=== PATIENT | male | born 1955 | race Caucasian/White ===

== ENCOUNTER → 2021-06-29 | Outpatient (CLI) | payer BC, MEDICARE ==
[2021-06-29 13:17] LABS: BASOPHILS % (AUTO) 1 % (0-10); EOSINOPHILS # (AUTO) 0.1 10^3/uL (0.0-0.3); EOSINOPHILS % (AUTO) 1 % (0-10); HEMATOCRIT 35 % (40-54); HEMOGLOBIN 12.2 g/dL (13.3-17.7); LYMPHOCYTES # (AUTO) 1.3 10^3/uL (1.0-4.0); LYMPHOCYTES % (AUTO) 26 % (12-44); MEAN CORPUSCULAR HEMOGLOBIN 32 pg (25-34); MEAN CORPUSCULAR HGB CONC 35 g/dL (32-36); MEAN CORPUSCULAR VOLUME 90 fL (80-99); MEAN PLATELET VOLUME 8.7 fL (9.0-12.2); MONOCYTES # (AUTO) 0.5 10^3/uL (0.0-1.0); MONOCYTES % (AUTO) 11 % (0-12); NEUTROPHILS # (AUTO) 2.9 10^3/uL (1.8-7.8); NEUTROPHILS % (AUTO) 60 % (42-75); PLATELET COUNT 185 10^3/uL (130-400); WHITE BLOOD COUNT 4.8 10^3/uL (4.3-11.0)
[2021-06-29 13:32] LABS: CREATINE KINASE 152 U/L (30-200)
[2021-06-29 13:38] LABS: CREATINE KINASE MB 2.3 NG/ML (<6.6)
[2021-06-29 14:01] LABS: ERYTHROCYTE SEDIMENTATION RATE 40 MM/HR (0-30)
== END ==
LOC: CARD 12:44
PROVIDERS: ATTEND Family Medicine
DX: R07.9 Chest pain, unspecified (principal); R41.0 Disorientation, unspecified; R79.82 Elevated C-reactive protein (CRP)
CPT/HCPCS: 36415; 82550; 82553; 84153; 84484; 85025; 85652; 86141; 93005

== ENCOUNTER → 2021-07-14 | Outpatient (CLI) | payer MEDICARE ==
--- NOTE | 2021-07-14 14:57 | Diagnostic Imaging Report ---
CT Lung Screening INDICATION: History of smoking, pack year data not provided. Patient presents for low-dose baseline CT screening. TECHNIQUE: Noncontrast, low-dose CT imaging performed according to the lung cancer screening protocol. Auto Exposure Controls were utilize during the CT exam to meet ALARA standards for radiation dose reduction. COMPARISON: Baseline. FINDINGS: No suspicious lung mass. No dominant pulmonary nodule. No findings of lung cancer. Within the right upper lobe and to a lesser extent the superior segment of the right lower lobe are some mild scattered tree-in-bud nodular infiltrates which may reflect nonspecific bronchiolitis. Patient has slight thickening of the central airways consistent with a component of underlying bronchitis. No endobronchial filling defect. There is no thoracic lymphadenopathy. There is no pleural or pericardial effusion. The aorta is nonaneurysmal. There are coronary artery atherosclerotic vascular calcification, severely involving the left main and substantially found in the LAD. Upper abdomen is nonacute. IMPRESSION: No findings of lung cancer. LUNG-RADS CATEGORY: 1 MODIFIER: None. OTHER SIGNIFICANT FINDINGS: 1. Faint tree-in-bud nodular infiltrates in the right upper and superior segment of the right lower lobes with mild bronchiectasis and bronchial wall thickening suggest nonspecific mild bronchiolitis and bronchitis. 2. Coronary artery atherosclerosis. Dictated by: Dictated on workstation # [id number]
== END ==
LOC: RAD 13:15
PROVIDERS: ATTEND Nurse Practitioner Family
DX: Z12.2 Encounter for screening for malignant neoplasm of respiratory organs (principal); Z87.891 Personal history of nicotine dependence
CPT/HCPCS: 71271

== ENCOUNTER → 2021-07-21 | Outpatient (CLI) | payer MEDICARE ==
--- NOTE | 2021-07-21 12:05 | Diagnostic Imaging Report ---
PROCEDURE: CT abdomen and pelvis without contrast. TECHNIQUE: Multiple contiguous axial images were obtained through the abdomen and pelvis without the use of intravenous contrast. Auto Exposure Controls were utilized during the CT exam to meet ALARA standards for radiation dose reduction. INDICATION: Microhematuria. FINDINGS: The lung bases are clear. The liver and gallbladder are unremarkable. Pancreas and spleen are unremarkable. No adrenal mass is detected. Kidneys are without calculi or hydronephrosis. Ureters are nondilated. No ureteral or bladder calculi are seen. Aorta is nonaneurysmal. No central retroperitoneal or mesenteric lymphadenopathy is seen. Bowel loops appear to be nonobstructed. There is moderate stool in the colon. No free fluid or fluid collection is seen. No pelvic lymphadenopathy is identified. Bony structures are nonacute. IMPRESSION: Unremarkable noncontrast CT of the abdomen and pelvis. No definite urinary tract calculi, mass or obstruction is detected. Dictated by: Dictated on workstation # [id number]
== END ==
LOC: RAD 11:15
PROVIDERS: ATTEND Urology
DX: N40.0 Benign prostatic hyperplasia without lower urinary tract symptoms (principal); R31.29 Other microscopic hematuria
CPT/HCPCS: 74176

== ENCOUNTER → 2021-08-03 | Outpatient (CLI) | payer MEDICARE | LOC: CARD 12:00 | PROVIDERS: ATTEND Internal Medicine Cardiovascular Disease | DX: R00.2 Palpitations (principal); R06.09 Other forms of dyspnea | CPT/HCPCS: 93225; 93226; 93306 ==

== ENCOUNTER → 2021-08-05 | Outpatient (CLI) | payer MEDICARE ==
[~2021-08-05] MED LIST: CATHETER FLUSH 10 ML SYR IVP PRN; REGADENOSON 0.4 MG/5 ML SYR (LEXISCAN) IV ONE
[2021-08-05 08:56] VITALS: BP 116/76
--- NOTE | 2021-08-09 21:36 | STRESS TEST ---
DATE OF SERVICE: 08/05/2021 RESTING AND POST REGADENOSON TECHNETIUM-99M TETROFOSMIN SPECT CT IMAGING ORDERING PHYSICIAN: Dr. Stewart. PRIMARY PHYSICIAN: Dr. Luong. CLINICAL DIAGNOSIS: Shortness of breath. Baseline images were carried out after injection of 10.13 mCi of technetium-99m Tetrofosmin. This was followed by 0.4 mg regadenoson and 31.4 mCi of technetium-99m Tetrofosmin for stress imaging. The electrocardiogram showed sinus rhythm at baseline. It did not change significantly with regadenoson infusion. The patient noted a feeling of indigestion and upset stomach following regadenoson infusion, which resolved in a few minutes. Review of images at rest and following stress indicates a moderate basal inferior perfusion defect, which appears transient. Gated images show normal global left ventricular systolic function with normal regional wall motion. Left ventricular ejection fraction is calculated to be 74%. CONCLUSIONS: 1. This study is indicative of a moderate amount of basal inferior ischemia. 2. Normal regional wall motion. 3. Normal global left ventricular systolic function with a calculated ejection fraction of 74%. Job ID: [id number] DocumentID: [id number] Dictated Date: 08/09/2021 18:02:48 Human Services Professional Date: 08/09/2021 21:35:45 Dictated By: BRETT STEWART MD, MA, FACP, FACC,
== END ==
LOC: CARD 07:45
PROVIDERS: ATTEND Internal Medicine Cardiovascular Disease
DX: R06.09 Other forms of dyspnea (principal)
CPT/HCPCS: 78452; 93017; A9502

== ENCOUNTER 2021-08-30 09:00 | Day surgery (SDC) | payer MEDICARE ==
[~2021-08-30] VITALS: Ht 167.6 cm; Wt 87.3 kg
[2021-08-30] VITALS (15 sets, daily range): BP systolic 106–160; BP diastolic 67–93
[2021-08-30] MEDS: NS IV 1000 ML 1,000 ML IV SCH ×3 (07:26→11:29)
[2021-08-30 07:36] LABS: HEMATOCRIT 41 % (40-54); HEMOGLOBIN 13.7 g/dL (13.3-17.7); MEAN CORPUSCULAR HEMOGLOBIN 31 pg (25-34); MEAN CORPUSCULAR HGB CONC 34 g/dL (32-36); MEAN CORPUSCULAR VOLUME 93 fL (80-99); MEAN PLATELET VOLUME 9.2 fL (9.0-12.2); PLATELET COUNT 140 10^3/uL (130-400); WHITE BLOOD COUNT 4.2 10^3/uL (4.3-11.0)
[2021-08-30 07:48] LABS: ALBUMIN 4.5 GM/DL (3.2-4.5); POTASSIUM 4.2 MMOL/L (3.6-5.0)
[2021-08-30 07:49] LABS: CALCIUM 9.6 MG/DL (8.5-10.1)
[2021-08-30 07:50] LABS: PROTHROMBIN TIME PATIENT 13.5 SEC (12.2-14.7)
[2021-08-30 07:51] LABS: TOTAL PROTEIN 7.4 GM/DL (6.4-8.2)
[2021-08-30 07:52] LABS: BILIRUBIN,TOTAL 0.7 MG/DL (0.1-1.0)
[2021-08-30 07:54] LABS: CREATININE SERUM 1.11 MG/DL (0.60-1.30)
[~2021-08-30 09:00] MED LIST changes: +ASPI-1238 PO; -CATHETER FLUSH 10 ML SYR IVP PRN; +DIAZ10TA3 PO; +FLUO40CA PO; +FURO20TA4 PO; +GABA300C PO; +HEParin (CATH LAB) 2,000 ML IV ONE; +LEVO50CA4 PO; +LIDOCAINE 1% INJ 20 ML VIAL ONE; +LOSA100T57 PO; +MIDAZOLAM 5 MG/5 ML (VERSED) VIAL ONE; +NS IV 1000 ML 1,000 ML IV SCH; +NS IV 1000 ML 1,000 ML ONE; +OMEP20CA18 PO; +POTA-51 PO; -REGADENOSON 0.4 MG/5 ML SYR (LEXISCAN) IV ONE; +ROPI2TAB6 PO; +SIMV20TA26 PO; +diphenhydrAMINE 50 MG/ML INJ (BENADRYL) ONE; +fentaNYL INJ 100 MCG/2 ML AMP ONE
[2021-08-30] MEDS ORDERED: ADENOSINE 90 MG/30 ML (ADENOSCAN) VIAL IV ONE ×2 (09:05→09:10)
[2021-08-30] MEDS ORDERED: HEParin 1000 UNIT/ML (10ML VIAL) FOR BOLUS ONE (09:05)
[2021-08-30] MEDS ORDERED: NITRO DRIP 25000 MCG/D5W 0 ML IV ONE (09:16)
[2021-08-30] MEDS ORDERED: EPTIFIBATIDE BOLUS 20 ML IV ONE (09:20)
[2021-08-30] MEDS ORDERED: ASPIRIN 81 MG CHEW (CHILDREN'S ASA) ONE (09:48)
[2021-08-30] MEDS ORDERED: CLOPIDOGREL 300 MG (PLAVIX) TABLET PO ONE (09:48)
--- NOTE | 2021-08-30 10:41 | CARDIAC CATHETERIZATION ---
DATE OF SERVICE: 08/30/2021 CARDIAC CATHETERIZATION AND CORONARY INTERVENTION REPORT The patient is a 66-year-old gentleman who has multiple coronary artery disease risk factors and who has been experiencing chest discomfort. Myocardial perfusion imaging was indicative of a considerable ischemia. Cardiac catheterization was carried out. Informed consent was obtained for cardiac catheterization, possible ad hoc coronary intervention. PROCEDURE IN DETAIL: He was brought to the cardiac catheterization laboratory in a fasting state. Right groin was prepared and draped in the usual sterile fashion. Lidocaine 1% was used for local anesthesia. Modified Seldinger technique was used to advance a 5-Romanian sheath into the right femoral artery, 5-Romanian JL4 catheter was used for left coronary angiography and 5-Romanian JR4 catheter used for right coronary angiography and for left heart catheterization and left ventricular angiography. Subsequently, fractional flow reserve measurement was carried out in the ostial and proximal left anterior descending and this was followed by percutaneous intervention and these are described below. FRACTIONAL FLOW RESERVE MEASUREMENT IN THE LEFT ANTERIOR DESCENDING: The ostial and proximal left anterior descending appeared to have considerable stenosis, but the severity was difficult to mink rancher. There also appeared to be considerable calcification in this area. We carried out fractional flow reserve measurement. We exchanged the sheath over a wire for a 6-Romanian sheath. We gave 5000 units of intravenous heparin. We used 6-Romanian JL4 guide catheter. We advanced a pressure wire across the lesion and fractional flow reserve measurement was carried out, which indicated that the fractional flow reserve was 0.75. Thus, this was a hemodynamically significant lesion and we proceeded with percutaneous intervention. PERCUTANEOUS INTERVENTION TO THE LEFT ANTERIOR DESCENDING: We gave a double bolus of Integrilin during the interventional procedure. We used the pressure wire to advance 2.5 x 15 mm balloon to the lesion in the ostial and proximal left anterior descending and balloon was inflated to 18 atmospheres. Subsequent angiography revealed approximately 50 to 60% stenosis at the previous site of nearly 90% stenosis. We then removed the balloon and tried to advance a Skypoint 2.75 x 12 mm stent, but we were not able to advance it across the lesion. We then removed the pressure wire and replaced it with a ChoICE extra support wire, and we were then able to advance the stent with moderate difficulty. We were able to get it through the lesion and then pulled back to carefully position it to cover the entire lesion and the stent balloon was inflated to 16 atmospheres. Full stent expansion was achieved. We then collapsed the balloon and pulled it back slightly proximally to cover the proximal two thirds of the standard segment and the balloon extended back through the ostial LAD into the distal left main and the balloon was inflated to 20 atmospheres. The balloon was then collapsed and removed. Subsequent angiography revealed 0% residual stenosis at the previous site of 90% stenosis in the proximal left anterior descending and flow throughout the vessel was normal. No other vessels were compromised with this stenting. The patient tolerated the procedure well. Angioplasty equipment was removed. Angiography of the right femoral artery was carried out through the sheath. Mynx was used to achieve hemostasis. HEMODYNAMICS: Left ventricular end-diastolic pressure following coronary angiography was 16 mmHg. There was no significant pressure gradient on pullback across the aortic valve. LEFT VENTRICULAR ANGIOGRAPHY: Left ventricular angiography was carried out in right anterior oblique projection. Global left ventricular systolic function is well preserved. Left ventricular ejection fraction approximately 60% and no significant wall motion abnormality was seen in this view. CORONARY ANGIOGRAPHY: Coronary calcification is seen that involved the proximal portions of the left main and the proximal portion of the left coronary system. The left anterior descending artery had up to 90% proximal stenosis that was successfully stented with Skypoint 2.75 x 15 mm stent. The left circumflex artery has mild to moderate plaque. A ramus intermedius artery does not exhibit significant disease. Right coronary artery is small and nondominant and does not exhibit significant stenosis. CONCLUSIONS: 1. Coronary artery disease primarily consisting of 90% proximal stenosis of the left anterior descending to which successful stenting was carried out with Skypoint 2.75 x 12 mm stent that was deployed at 18 atmospheres. The rest of the coronary system has mild to moderate plaque and proximal portion of the coronaries have moderate calcification. 2. Well preserved global left ventricular systolic function with ejection fraction of 60% to 65%. 3. Left ventricular end-diastolic pressure is 16 mmHg. DISCUSSION AND RECOMMENDATIONS: We have added a dual antiplatelet therapy regimen. He is already on statin therapy that is being continued. Risk factor modification has been reviewed. Job ID: [id number] DocumentID: [id number] Dictated Date: 08/30/2021 10:02:27 Sheet Finisher Date: 08/30/2021 10:41:04 Dictated By: BRETT CARROLL MD, MA, FACP, FACC,
[2021-08-30] MEDS ORDERED: PATIENT MAY USE OWN MEDS, ALL PO SCH (11:15)
--- NOTE | 2021-08-30 11:42 | Cardiac Procedure Note-CS/ASA ---
Pre-Procedure Note Pre-Op Procedure Note H&P Reviewed The H&P was reviewed, patient examined and no changes noted. Date H&P Reviewed: August 30, 2021 Time H&P Reviewed: 08:45 Conscious Sedation Pre-Proced Time 08:45 ASA Score 3 For ASA 3 and 4: Consider anesthesia and medical clearance. Also, for patients with a history of failed moderate sedation consider anesthesia. Airway Lungs Heart ASA score ASA 1: a normal healthy patient ASA 2: a patient with a mild systemic disease (mid diabetes, controlled hypertension, obesity ASA 3: a patient with a severe systemic disease that limits activity (angina, COPD, prior Myocardial infarction) ASA 4: a patient with an incapacitating disease that is a constant threat to life (CHF, renal failure) ASA 5: a moribund patient not expected to survive 24 hrs. (ruptured aneurysm) ASA 6: a declared brain- patient whose organs are being harvested. For emergent operations, add the letter E after the classification Mallampati Classification Grade 2 Sedation Plan Analgesia, Amnesia, Plan communicated to team members, Discussed options with patient/fam, Discussed risks with patient/fam The patient is an appropriate candidate to undergo the planned procedure, sedation, and anesthesia. The patient immediately re-assessed prior to indication. BRETT CARROLL MD FACP FAC CCDS August 30, 2021 11:42
[2021-08-30 12:25] LABS: BASOPHILS % (AUTO) 1 % (0-10); EOSINOPHILS # (AUTO) 0.1 10^3/uL (0.0-0.3); EOSINOPHILS % (AUTO) 2 % (0-10); HEMATOCRIT 38 % (40-54); LYMPHOCYTES # (AUTO) 1.2 10^3/uL (1.0-4.0); LYMPHOCYTES % (AUTO) 31 % (12-44); MEAN CORPUSCULAR HEMOGLOBIN 32 pg (25-34); MEAN CORPUSCULAR HGB CONC 34 g/dL (32-36); MEAN CORPUSCULAR VOLUME 93 fL (80-99); MEAN PLATELET VOLUME 9.5 fL (9.0-12.2); MONOCYTES # (AUTO) 0.3 10^3/uL (0.0-1.0); MONOCYTES % (AUTO) 8 % (0-12); NEUTROPHILS # (AUTO) 2.3 10^3/uL (1.8-7.8); NEUTROPHILS % (AUTO) 59 % (42-75); PLATELET COUNT 137 10^3/uL (130-400)
[2021-08-30 12:42] LABS: POTASSIUM 4.4 MMOL/L (3.6-5.0)
[2021-08-30 12:43] LABS: CALCIUM 8.9 MG/DL (8.5-10.1)
[2021-08-30 12:47] LABS: CREATININE SERUM 0.92 MG/DL (0.60-1.30)
[2021-08-30] MEDS ORDERED: NON-FORMULARY MEDICATION 1 EA EA (Ropinirole HCl 2 MG) PO SCH (13:00)
[2021-08-30] MEDS ORDERED: DIAZEPAM 5 MG (VALIUM) TABLET PO PRN (18:00)
[2021-08-30] MEDS ORDERED: GABAPENTIN 300 MG (NEURONTIN) CAP PO SCH (21:00)
[2021-08-30] MEDS: [UNRECOGNIZED DRUG - REMARK] PO SCH (21:08)
[2021-08-31] MEDS: NS IV 1000 ML 1,000 ML IV SCH (00:46)
[2021-08-31 03:55] VITALS: BP 114/66
[2021-08-31] MEDS ORDERED: [UNRECOGNIZED DRUG - REMARK] PO SCH (06:30)
--- NOTE | 2021-08-31 07:58 | Progress Note - Cardiology ---
Cardiology SOAP Progress Note Subjective: Lying in bed Wants to go home No c/o CP, SOB or palpitations C/O mild right groin tenderness at the cardiac cath site with palpation Objective: I&O/Vital Signs 08/30/21 08/30/21 08/31/21 08/31/21 21:00 23:04 01:00 03:55 Temp 35.8 36.8 Pulse 65 60 65 Resp 15 18 B/P (MAP) 133/72 (92) 114/66 (82) Pulse Ox 96 97 O2 Delivery Room Air Room Air Room Air 08/31/21 00:00 Intake Total 620 ml Output Total 600 ml Balance 20 ml Side: right Groin site without hematoma: Yes Condition: DP/PT pulses palpable, extremity w/d/p Bruising: mild bruising Constitutional: AAO x 3, well-developed, well-nourished Respiratory: No accessory muscle use, No respiratory distress; chest expansion is symmetric, chest is bilaterally symmetric, rhonchi (scattered) Cardiovascular: regular rate-rhythm; No JVD; S1 and S2 Gastrointestional: No tender; soft, round, audible bowel sounds Extremities: no lower extremity edema bilateral Neurologic/Psychiatric: grossly intact (moves all extremities) Skin: No rash on exposed areas, No ulcerations on exposed areas Results/Procedures: Labs Laboratory Tests 08/30/21 11:55: White Blood Count 4.0L, Red Blood Count 4.13L, Hemoglobin 13.0L, Hematocrit 38L, Mean Corpuscular Volume 93, Mean Corpuscular Hemoglobin 32, Mean Corpuscular Hemoglobin Concent 34, Red Cell Distribution Width 13.5, Platelet Count 137, Mean Platelet Volume 9.5, Immature Granulocyte % (Auto) 1, Neutrophils (%) (Auto) 59, Lymphocytes (%) (Auto) 31, Monocytes (%) (Auto) 8, Eosinophils (%) (Auto) 2, Basophils (%) (Auto) 1, Neutrophils # (Auto) 2.3, Lymphocytes # (Auto) 1.2, Monocytes # (Auto) 0.3, Eosinophils # (Auto) 0.1, Basophils # (Auto) 0.0, Immature Granulocyte # (Auto) 0.0, Percent Immature Platelet Fraction 1.7, Sodium Level 135, Potassium Level 4.4, Chloride Level 103, Carbon Dioxide Level 21, Anion Gap 11, Blood Urea Nitrogen 11, Creatinine 0.92, Estimat Glomerular Filtration Rate 92, BUN/Creatinine Ratio 12, Glucose Level 95, Calcium Level 8.9, Magnesium Level 2.0 Microbiology 08/30/21 MRSA Screen - Final, Complete MRSA not isolated Laboratory Tests 08/30/21 07:26 08/30/21 11:55 A/P: Assessment: CAD - Cardiac cath of 08-30-21: Coronary artery disease primarily consisting of 90% proximal stenosis of the left anterior descending to which successful stenting was carried out with Skypoint 2.75 x 12 mm stent that was deployed at 18 atmospheres. The rest of the coronary system has mild to moderate plaque and proximal portion of the coronaries have moderate calcification. Well preserved global left ventricular systolic function with ejection fraction of 60% to 65%. Left ventricular end-diastolic pressure is 16 mmHg. Palpitations - undetermined etiology H/O marijuana use - cessation advised H/o TIAs CT chest 07/14/21 - pulm nodules, followed by Dr Luong - coronary calcium Hyperlipidemian - treated with stating and managed by Dr Luong Plan: Ok to discharge home today Continue current medication regimen including statin, Plavix, ASA Advise out pt f/u in 2 weeks or sooner if needed JOEL MORENO Aug 31, 2021 07:58
[2021-08-31] MEDS ORDERED: ASPI81TA64 PO (07:59)
[2021-08-31] MEDS ORDERED: CLOP75TA28 PO (07:59)
[2021-08-31 08:00] VITALS: BP 117/62
--- NOTE | 2021-08-31 08:00 | Discharge Inst-Cardiology ---
Discharge Inst-Cardiac Discharge Medications New Medications: Aspirin (Children's Aspirin) 81 Mg Tab.chew 0 MG PO DAILY, #90 TAB 3 Refills Clopidogrel Bisulfate (Clopidogrel) 75 Mg Tablet 75 MG PO DAILY, #90 TAB 3 Refills Continued Medications: Diazepam (Diazepam) 10 Mg Tablet 10 MG PO Q6H PRN for ANXIETY, TAB Fluoxetine HCl (Fluoxetine HCl) 40 Mg Capsule 40 MG PO DAILY, CAP Furosemide (Furosemide) 20 Mg Tablet 20 MG PO DAILY, TAB Gabapentin (Neurontin) 300 Mg Capsule 300 MG PO DAILY, CAP Levothyroxine Sodium (Levothyroxine) 50 Mcg Capsule 50 MCG PO DAILY, CAP Losartan Potassium (Losartan Potassium) 100 Mg Tablet 100 MG PO DAILY, TAB Omeprazole (Omeprazole) 20 Mg Capsule.dr 40 MG PO DAILY, CAP Potassium Chloride (Potassium Chloride) 20 Meq Tablet.er 20 MEQ PO DAILY, TAB Ropinirole HCl (Ropinirole HCl) 2 Mg Tablet 2 MG PO TID, TAB Simvastatin (Simvastatin) 20 Mg Tablet 20 MG PO DAILY, TAB Discontinued Medications: Aspirin (Aspirin EC) 81 Mg Tablet.dr 81 MG PO DAILY, TAB New, Converted or Re-Newed RX: Transmitted to Pharmacy Patient Instructions Patient Instructions: Please schedule follow up appointment to see Dr. Stewart in 2 weeks JOEL MORENO Aug 31, 2021 08:00
[2021-08-31] MEDS ORDERED: [UNRECOGNIZED DRUG - REMARK] PO SCH (09:00)
[2021-08-31] MEDS ORDERED: [UNRECOGNIZED DRUG - REMARK] PO SCH (09:00)
[2021-08-31] MEDS ORDERED: GABAPENTIN 300 MG (NEURONTIN) CAP PO SCH (09:00)
[2021-08-31] MEDS ORDERED: [UNRECOGNIZED DRUG - REMARK] PO SCH (09:00)
[2021-08-31] MEDS ORDERED: [UNRECOGNIZED DRUG - REMARK] PO SCH (09:00)
[2021-08-31] MEDS ORDERED: LOSARTAN 100 MG (COZAAR) TABLET PO SCH (09:00)
[2021-08-31] MEDS ORDERED: FUROSEMIDE 20 MG (LASIX) TAB PO SCH ×2 (09:00)
[2021-08-31] MEDS ORDERED: CLOPIDOGREL 75 MG (PLAVIX) TABLET PO SCH (09:00)
[2021-08-31] MEDS ORDERED: ASPIRIN 81 MG CHEW (CHILDREN'S ASA) PO SCH (09:00)
[2021-08-31] MEDS: [UNRECOGNIZED DRUG - REMARK] PO SCH (09:08)
--- NOTE | 2021-08-31 14:46 | Progress Note - Cardiology ---
Cardiology SOAP Progress Note Subjective: No cp or palp or syncope or shortness of breath No n/v/d No focal weakness No groin or leg discomfort or discoloration Objective: I&O/Vital Signs 08/31/21 08/31/21 08/31/21 08/31/21 03:55 07:00 08:00 09:00 Temp 36.8 36.6 Pulse 65 75 62 Resp 18 20 B/P (MAP) 114/66 (82) 117/62 (80) Pulse Ox 97 93 O2 Delivery Room Air Room Air Room Air 08/31/21 00:00 Intake Total 620 ml Output Total 600 ml Balance 20 ml Side: right Groin site without hematoma: Yes Condition: DP/PT pulses palpable, extremity w/d/p Bruising: mild bruising Constitutional: AAO x 3, well-developed, well-nourished Respiratory: No accessory muscle use, No respiratory distress; chest expansion is symmetric, chest is bilaterally symmetric, rhonchi (scattered) Cardiovascular: regular rate-rhythm; No JVD; S1 and S2 Gastrointestional: No tender; soft, round, audible bowel sounds Extremities: no lower extremity edema bilateral Neurologic/Psychiatric: grossly intact (moves all extremities) Skin: No rash on exposed areas, No ulcerations on exposed areas Results/Procedures: Labs Microbiology 08/30/21 MRSA Screen - Final, Complete MRSA not isolated Laboratory Tests 08/30/21 07:26 08/30/21 11:55 A/P: Assessment: CAD - Cardiac cath of 08-30-21: Coronary artery disease primarily consisting of 90% proximal stenosis of the left anterior descending to which successful stenting was carried out with Skypoint 2.75 x 12 mm stent that was deployed at 18 atmospheres. The rest of the coronary system has mild to moderate plaque and proximal portion of the coronaries have moderate calcification. Well preserved global left ventricular systolic function with ejection fraction of 60% to 65%. Left ventricular end-diastolic pressure is 16 mmHg. Palpitations - undetermined etiology H/O marijuana use - cessation advised H/o TIAs CT chest 07/14/21 - pulm nodules, followed by Dr Luong - coronary calcium Hyperlipidemian - treated with stating and managed by Dr Luong Plan: I discussed his CV findings and interventions with him I discussed his meds with him and advised compliance Ok to discharge home today Continue current medication regimen including statin, Plavix, ASA Advise out pt f/u in 2 weeks or sooner if needed BRETT CARROLL MD FACP FAC CCDS Aug 31, 2021 14:46
== END 2021-08-31 12:18 | disposition home or self-care (01) ==
LOC: CATH 09:00 → CSD 10:15 → CATH 08-31 12:18
PROVIDERS: ATTEND Internal Medicine Cardiovascular Disease
DX: I25.10 Atherosclerotic heart disease of native coronary artery without angina pectoris (principal); R00.2 Palpitations; R91.8 Other nonspecific abnormal finding of lung field; E78.5 Hyperlipidemia, unspecified; Z79.899 Other long term (current) drug therapy; Z86.73 Personal history of transient ischemic attack (TIA), and cerebral infarction without residual deficits; F12.90 Cannabis use, unspecified, uncomplicated
CPT/HCPCS: 80048; 80053; 80061; 83735; 85025; 85027; 85610; 85730; 87081; 93005 ×2; 93458; C1725; C1760; C1769 ×2; C1874; C1887; C1894 ×2; C9600; 36415